=== PATIENT | female | born 2000 | race African-American/Black ===

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

== ENCOUNTER 2022-03-04 07:55 | Emergency (ER) | payer OTHER | END 2022-03-04 08:56 | disposition home or self-care (01) | LOC: MADERS 07:55 | DX: J11.1 Influenza due to unidentified influenza virus with other respiratory manifestations (principal) | CPT/HCPCS: 87081; 87430; 87804; 99283 ==